=== PATIENT | male | born 1985 | race Asian ===

== ENCOUNTER 2017-01-11 19:53 | Emergency (ER) | payer OTHER ==
[2017-01-11 20:55] LABS: BASOPHIL % 0.6 % (0-2); PLATELET COUNT 169 x10^3mcL (130-400); RED CELL DISTRIBUTION WIDTH 12.8 % (11.5-14.5)
[2017-01-11 21:01] LABS: CALCIUM 8.4 mg/dL (8.5-10.1); CARBON DIOXIDE 28.1 mmol/L (21-32); CHLORIDE SERUM 106 mmol/L (98-107); CREATININE SERUM 0.9 mg/dL (0.7-1.3); GFR1 > 60 mL/min; GLUCOSE SERUM 91 mg/dL (74-106); POTASSIUM SERUM 3.7 mmol/L (3.5-5.1); SODIUM SERUM 140 mmol/L (136-145)
[2017-01-11 21:06] LABS: ALBUMIN 4.3 g/dL (3.4-5.0); ALKALINE PHOSPHATASE 56 U/L (46-116); ALT/SGPT 26 U/L (16-63); AST/SGOT 11 U/L (15-37); BILIRUBIN TOTAL 0.77 mg/dL (0.20-1.00); LIPASE 86 IU/L (73-393); TOTAL PROTEIN, SERUM 6.8 g/dL (6.4-8.2)
[2017-01-11 23:41] VITALS: BP 115/71
== END 2017-01-11 23:41 | disposition home or self-care (01) ==
LOC: ED 19:53
PROVIDERS: Emergency Medicine
DX: K59.00 Constipation, unspecified (principal)
CPT/HCPCS: C9113; J2405; J3010; J7030

== ENCOUNTER 2017-01-29 02:29 | Inpatient (IN) | payer OTHER ==
[~2017-01-29] VITALS: Ht 177.8 cm; Wt 81.9 kg
[2017-01-29 03:43] LABS: BASOPHIL % 0.7 % (0-2); PLATELET COUNT 142 x10^3mcL (130-400); RED CELL DISTRIBUTION WIDTH 12.7 % (11.5-14.5)
[2017-01-29 04:07] LABS: CARBON DIOXIDE 28.8 mmol/L (21-32); CHLORIDE SERUM 111 mmol/L (98-107); GFR1 > 60 mL/min; GLUCOSE SERUM 119 mg/dL (74-106); POTASSIUM SERUM 4.6 mmol/L (3.5-5.1); SODIUM SERUM 144 mmol/L (136-145)
[2017-01-29 04:13] LABS: ALKALINE PHOSPHATASE 58 U/L (46-116); ALT/SGPT 23 U/L (16-63); AST/SGOT 10 U/L (15-37); BILIRUBIN TOTAL 0.4 mg/dL (0.20-1.00)
[2017-01-29 04:18] LABS: ALBUMIN 3.2 g/dL (3.4-5.0); TOTAL PROTEIN, SERUM 5.5 g/dL (6.4-8.2)
[2017-01-29 04:54] LABS: microscopic required? NO
[2017-01-29 05:15] VITALS: BP 106/58
[2017-01-29 05:18] LABS: urine erythrocyte NEGATIVE (NEGATIVE)
[2017-01-29 05:25] LABS: AMPHETAMINE QUAL UR NONE DETECTED (NEG <=1000)
[2017-01-29 05:27] VITALS: BP 106/58
[2017-01-29 05:50] LABS: CHOLESTEROL/HDL RATIO 3.5
[2017-01-29 05:59] LABS: T3 TOTAL 0.79 ng/mL
[2017-01-29 06:02] LABS: FREE T4 0.84 ng/dL (0.76-1.46); FREE THYROXINE INDEX 2.6 ug/dL (1.4-4.5); T4(THYROXINE) 6.4 ug/dL (4.7-13.3)
[2017-01-29 07:47] LABS: BASOPHIL % 0.8 % (0-2); RED CELL DISTRIBUTION WIDTH 12.7 % (11.5-14.5)
[2017-01-29 07:50] LABS: PLATELET COUNT 120 x10^3mcL (130-400)
[2017-01-29 07:59] LABS: CALCIUM 7.4 mg/dL (8.5-10.1); CARBON DIOXIDE 27.3 mmol/L (21-32); CHLORIDE SERUM 113 mmol/L (98-107); GFR1 > 60 mL/min; GLUCOSE SERUM 96 mg/dL (74-106); POTASSIUM SERUM 4.6 mmol/L (3.5-5.1); SODIUM SERUM 145 mmol/L (136-145)
[2017-01-29 09:04] LABS: TOTAL IRON BINDING CAPACITY 287 ug/dL (250-450)
[2017-01-29 09:05] LABS: IRON 228 ug/dL (65-170)
[2017-01-29 09:14] LABS: RED BLOOD CELLS 3.09 M/mm3 (4.52-5.90)
[2017-01-29 10:20] VITALS: BP 96/56
[2017-01-29 12:49] LABS: CALCIUM 7.3 mg/dL (8.5-10.1); CARBON DIOXIDE 26.7 mmol/L (21-32); CHLORIDE SERUM 112 mmol/L (98-107); CREATININE SERUM 0.8 mg/dL (0.7-1.3); GFR1 > 60 mL/min; GLUCOSE SERUM 145 mg/dL (74-106); POTASSIUM SERUM 4.3 mmol/L (3.5-5.1); SODIUM SERUM 144 mmol/L (136-145)
[2017-01-29 12:50] LABS: BASOPHIL % 0.6 % (0-2); RED CELL DISTRIBUTION WIDTH 12.9 % (11.5-14.5)
[2017-01-29 12:52] LABS: PLATELET COUNT 110 x10^3mcL (130-400)
[2017-01-29 14:10] VITALS: BP 102/54
[2017-01-29 17:05] VITALS: BP 117/72
[2017-01-29 20:29] VITALS: BP 107/70
[2017-01-30 06:14] VITALS: BP 100/49
[2017-01-30 06:22] LABS: CALCIUM 7.7 mg/dL (8.5-10.1); CARBON DIOXIDE 25.7 mmol/L (21-32); CHLORIDE SERUM 112 mmol/L (98-107); CREATININE SERUM 0.8 mg/dL (0.7-1.3); GFR1 > 60 mL/min; GLUCOSE SERUM 108 mg/dL (74-106); MAGNESIUM 1.6 mg/dL (1.8-2.4); PHOSPHOROUS 2.8 mg/dL (2.5-4.9); POTASSIUM SERUM 4.3 mmol/L (3.5-5.1); SODIUM SERUM 143 mmol/L (136-145)
[2017-01-30 07:36] LABS: BASOPHIL % 0.5 % (0-2); RED CELL DISTRIBUTION WIDTH 13.1 % (11.5-14.5)
[2017-01-30 07:39] LABS: PLATELET COUNT 106 x10^3mcL (130-400)
[2017-01-30 09:44] VITALS: BP 109/61
[2017-01-30 12:55] LABS: BASOPHIL % 0.6 % (0-2); RED CELL DISTRIBUTION WIDTH 12.6 % (11.5-14.5)
[2017-01-30 13:04] LABS: PLATELET COUNT 123 x10^3mcL (130-400)
[2017-01-30 17:27] VITALS: BP 107/61
[2017-01-30 22:02] VITALS: BP 107/56
[2017-01-31 05:50] VITALS: BP 105/61
[2017-01-31 06:34] LABS: CALCIUM 7.9 mg/dL (8.5-10.1); CARBON DIOXIDE 28.4 mmol/L (21-32); CHLORIDE SERUM 108 mmol/L (98-107); CREATININE SERUM 0.9 mg/dL (0.7-1.3); GFR1 > 60 mL/min; GLUCOSE SERUM 98 mg/dL (74-106); PHOSPHOROUS 3.7 mg/dL (2.5-4.9); POTASSIUM SERUM 4.1 mmol/L (3.5-5.1); SODIUM SERUM 142 mmol/L (136-145)
[2017-01-31 06:55] LABS: BASOPHIL % 0.8 % (0-2); RED CELL DISTRIBUTION WIDTH 12.9 % (11.5-14.5)
[2017-01-31 06:58] LABS: PLATELET COUNT 120 x10^3mcL (130-400)
[2017-01-31 09:41] VITALS: BP 105/47
[2017-01-31] MEDS ORDERED: FERG PO (13:18)
[2017-01-31] MEDS ORDERED: PRILOSEC OTC20 M1 PO (13:19)
[2017-01-31] MEDS ORDERED: PHARMASSURE VI500 MG PO (13:19)
[2017-01-31] MEDS ORDERED: LAC PO (13:25)
[2017-01-31 13:55] VITALS: BP 105/47
[2017-01-31] MEDS ORDERED: FLA500 PO (14:42)
[2017-01-31] MEDS ORDERED: CAR1 PO (14:42)
[2017-01-31] MEDS ORDERED: VITC PO (14:42)
[2017-01-31] MEDS ORDERED: ONDANSETRON4 M3 PO (14:42)
[2017-01-31] MEDS ORDERED: LEV500 PO (14:43)
== END 2017-01-31 17:35 | disposition home or self-care (01) | DRG 241 ==
LOC: ED 02:29 → MU 04:23 → DU 04:23 → MU 10:42
PROVIDERS: Emergency Medicine; Family Medicine; Internal Medicine Gastroenterology; ADMIT Family Medicine
PROC: 0DB78ZX Excision of Stomach, Pylorus, Via Natural or Artificial Opening Endoscopic, Diagnostic (ICD-10-PCS; principal; 2017-01-29 09:00)
PROC: 3E0G8GC Introduction of Other Therapeutic Substance into Upper GI, Via Natural or Artificial Opening Endoscopic (ICD-10-PCS; 2017-01-29 09:00)
PROC: 0W3P8ZZ Control Bleeding in Gastrointestinal Tract, Via Natural or Artificial Opening Endoscopic (ICD-10-PCS; 2017-01-29 09:00)
DX: K26.4 Chronic or unspecified duodenal ulcer with hemorrhage (principal); N17.0 Acute kidney failure with tubular necrosis; E44.0 Moderate protein-calorie malnutrition; K31.84 Gastroparesis; D69.6 Thrombocytopenia, unspecified; E55.9 Vitamin D deficiency, unspecified; D62 Acute posthemorrhagic anemia; F17.210 Nicotine dependence, cigarettes, uncomplicated; B96.81 Helicobacter pylori [H. pylori] as the cause of diseases classified elsewhere; E78.5 Hyperlipidemia, unspecified; E05.90 Thyrotoxicosis, unspecified without thyrotoxic crisis or storm; E87.8 Other disorders of electrolyte and fluid balance, not elsewhere classified; Z87.11 Personal history of peptic ulcer disease; Z88.0 Allergy status to penicillin; Z68.25 Body mass index [BMI] 25.0-25.9, adult
CPT/HCPCS: 43235; 80307; 83880; 84439; C9113; J0171; J1200; J1610; J2250; J2270; J2310; J2405; J2765; J3010; J3420; J3475; J3490; J7030; J7042; Q0092; Q0162

== ENCOUNTER 2019-04-03 09:59 | Emergency (ER) | payer OTHER ==
[~2019-04-03] VITALS: Ht 177.8 cm; Wt 84.8 kg
[~2019-04-03 09:59] MED LIST: CAR1 PO; FERG PO; FLA500 PO; LAC PO; LEV500 PO; ONDANSETRON4 M3 PO; PHARMASSURE VI500 MG PO; PRILOSEC OTC20 M1 PO; VITC PO
[2019-04-03 10:08] VITALS: Ht 177.8 cm; Wt 84.8 kg
[2019-04-03 10:50] LABS: microscopic required? NO
[2019-04-03 11:10] LABS: UA SPECIFIC GRAVITY 1.015 (1.005-1.035); urine erythrocyte NEGATIVE (NEGATIVE)
[2019-04-03 11:20] LABS: BASOPHIL % 0.9 % (0-2); PLATELET COUNT 161 x10^3mcL (130-400); RED CELL DISTRIBUTION WIDTH 12.6 % (11.5-14.5)
[2019-04-03 11:28] LABS: CALCIUM 9.3 mg/dL (8.5-10.1); CARBON DIOXIDE 27.5 mmol/L (21-32); CHLORIDE SERUM 107 mmol/L (98-107); CREATININE SERUM 0.9 mg/dL (0.7-1.3); GFR1 > 60 mL/min; GLUCOSE SERUM 103 mg/dL (74-106); POTASSIUM SERUM 4.4 mmol/L (3.5-5.1); SODIUM SERUM 146 mmol/L (136-145)
[2019-04-03 11:33] LABS: ALBUMIN 4.4 g/dL (3.4-5.0); ALKALINE PHOSPHATASE 71 U/L (46-116); ALT/SGPT 47 U/L (16-63); AST/SGOT 16 U/L (15-37); BILIRUBIN TOTAL 0.63 mg/dL (0.20-1.00); LIPASE 70 IU/L (73-393); TOTAL PROTEIN, SERUM 7.7 g/dL (6.4-8.2)
[2019-04-03 13:06] VITALS: BP 115/68
== END 2019-04-03 13:06 | disposition home or self-care (01) ==
LOC: ED 09:59
PROVIDERS: Emergency Medicine
DX: I86.1 Scrotal varices (principal); Z88.0 Allergy status to penicillin
CPT/HCPCS: 99406; J1885; J7030